=== PATIENT | male | born 1980 | race Caucasian/White ===

== ENCOUNTER 2020-05-06 08:34 | Outpatient (CLI) | payer OTHER, SELFPAY ==
--- NOTE | 2020-05-06 08:43 | XR_ITS ---
WS: [id number] Exam: XR cervical spine 3V* [id number] Date/Time of Exam: 05/06/2020 8:43 AM Reason For Exam: NECK PAIN No fracture or dislocation. There is straightening and reversal of the normal cervical C curve. The o dontoid is intact. Paraspinal soft tissue structures are unremarkable. Disc spaces are preserved. Pos terior elements are intact. XR/XR cervical spine 3V* [id number] IMPRESSION: 1. Straightening and reversal of the normal cervical lordosis. No fracture or m alalignment.
--- NOTE | 2020-05-06 08:43 | XR_ITS ---
WS: [id number] Exam: XR chest 2V* [id number] Date/Time of Exam: 05/06/2020 8:43 AM Reason For Exam: TOBACCO USE No priors. Findings: The lungs are clear and fully expanded. Costophrenic angles are sharp. No infiltrates. Bronchovascula r relief appears normal. Cardiac silhouette is unremarkable. Bony elements are intact. XR/XR chest 2V* [id number] IMPRESSION: Unremarkable chest radiograph.
== END 2020-05-06 08:35 | disposition home or self-care (01) ==
PROVIDERS: Visit Provider Nurse Practitioner Family
DX: M54.2 Cervicalgia (principal); Z72.0 Tobacco use
CPT/HCPCS: 71046; 72040